=== PATIENT | female | born 1965 ===

== ENCOUNTER 2025-01-23 16:54 | Emergency (ER) | payer OTHER, SELFPAY ==
[2025-01-23 16:56] VITALS: BP 118/79
[2025-01-23 17:14] LABS: Hematocrit 39.3 % (37.0-47.0); Hemoglobin 13.5 g/dL (12.0-16.0); Mean Corp Hgb Conc. 34.4 g/dL (33.0-37.0); Mean Corpuscular Volume 86.8 fL (81.0-99.0); Nucleated Red Blood Cells % 0 %; Platelet Count 248 10^3/uL (130-400); Red Cell Dist. Width 12.4 % (11.5-14.5)
--- NOTE | 2025-01-23 17:18 | ED.GENMED ---
ED Provider Triage
<Zohreh Hoffman PA-C - Last Filed: 01/26/25 06:00>
-
Patient seen by provider in Triage?: Seen in Triage
Attestation: A medical screening examination has been initiated by a qualified medical provider. Based on the assessment performed at this time, it has been determined that an emergent medical condition may exist and the patient has been informed
that further medical evaluation and possible additional diagnostic testing may be needed.
HPI: 59yoF here with lower abd discomfort, bloating, and constipation x 3 days. Now having pain with urination. Hx of diverticulitis and C.diff 7 years ago. Sent in by PCP.
GENERAL: Alert , in no apparent distress
EYE: No visual abnormalities.
NECK: Trachea midline
ENT: No visible abnormalities.
LUNGS: No acute respiratory distress
NEUROLOGICAL: Alert and oriented
SKIN: Skin intact. No visible changes.
MUSCULOSKELETAL: Moving extremities normally
PSYCH: Normal and appropriate interaction.
This is a medical evaluation conducted in person to initiate diagnostic evaluation and provide initial therapeutics. Please see further documentation by the treating clinician.
Labs, UA, and CT abd with IV/PO contrast ordered. Patient has a contrast allergy which was hives but she has been premedicated before without any issue.
History of Present Illness
<Zohreh Hoffman PA-C - Last Filed: 01/26/25 06:00>
General
Chief Complaint: Abdominal Symptoms
Time Seen by Provider: 01/23/25 22:23
<Leonie Egan MD - Last Filed: 01/23/25 23:45>
General
Source: patient
History of Present Illness
History of Present Illness:
59-year-old female presents emergency department with complaints of having difficulty of having a full bowel movement since last Thursday although she says she had a 'good' bowel movement on Thursday. Today, she noted abdominal discomfort
throughout her mid to lower abdomen associated with feeling bloated. She also notes that it 'hurts to pee', in her abdomen, not described as burning with urination or any kind of pelvic/vaginal discomfort. She denies fever, chills, nausea,
vomiting, vaginal bleeding or discharge, chest pain, dyspnea, back pain, or other complaints. The pain is not focal, but she does state that it seems to get worse when she eats.
Past History
<Leonie Egan MD - Last Filed: 01/23/25 23:45>
Past History
ED Past Medical History: Other (C. difficile, diverticulitis, hidradenitis, prediabetes)
ED Past Surgical History: None
Social History
Tobacco: Non-smoker
Alcohol: Occasional
Drug: None
Living: alone
Phy Exam
<Leonie Egan MD - Last Filed: 01/23/25 23:45>
Physical Exam
Physical Exam:
GENERAL: Alert , in no apparent distress
EYE: pupils equal and reactive
NECK: Supple, no significant adenopathy.
ENT: o/p clr, mmm.
CARDIAC: Regular rate and rhythm .
LUNGS: Clear breath sounds bilaterally, no acute respiratory distress, no wheezes/rales/rhonchi
ABDOMEN: Soft, mild lower abdominal tenderness especially at left lower quadrant, no r/g, no cvat
NEUROLOGICAL: Alert and oriented, no focal neuro deficits
SKIN: Warm and dry, skin intact.
MUSCULOSKELETAL: No edema, well perfused.
PSYCH: Normal and appropriate interaction.
Course
<Zohreh Hoffman PA-C - Last Filed: 01/26/25 06:00>
Orders/Labs/Results
Orders:
Orders
01/23/25 17:07
Complete Blood Count/With Diff Urgent
Comprehensive Metabolic Panel Urgent
Lipase Urgent
01/23/25 17:24
CT Abd/pel W Iv And Oral Contr Urgent
Comment:
Reason For Exam: lower abd pain, constipation
Iohexol [Omnipaque] See Protocol PO NOW STA
01/23/25 17:25
Urinalysis Reflex To Culture Urgent
Date Specimen was Collected: 01/23/25
Time Specimen was Collected: 17:23
01/23/25 20:06
Diphenhydramine [Benadryl] 50 mg IV NOW STA
Hydrocortisone Sod Succinate [Solu-Cortef] 200 mg IV NOW STA
01/23/25 23:40
Amoxicillin 875 mg/Clav 125 mg [Augmentin 875 mg/125 mg] 1 tablet PO NOW STA
Vancomycin HCl [Firvanq] 125 mg PO NOW STA
01/23/25 23:59
Vancomycin HCl [Firvanq] 125 mg PO NOW STA
Abnormal Lab Results
01/23/25
17:07
MPV 10.5 H fL
(7.4-10.4)
Absolute Neuts (auto) 8.4 H 10^3/uL
(1.4-6.5)
Neutrophils % 80.3 H %
(42.2-75.2)
Lymphocytes % 12.8 L %
(20.5-51.1)
BUN 19 H mg/dl
(7-17)
Glucose 121 H mg/dl
(70-99)
Calcium 10.3 H mg/dl
(8.4-10.2)
ALT 53 H U/L
(0-35)
Alkaline Phosphatase 134 H U/L
(38-126)
01/23/25 17:07
01/23/25 17:07
Vital Signs
Initial and Last Documented VS:
Initial Vital Signs
Temp Pulse Resp BP Pulse Ox
98.3 F 92 16 118/79 96
01/23/25 16:56 01/23/25 16:56 01/23/25 16:56 01/23/25 16:56 01/23/25 16:56
Last Documented Vital Signs
Temp Pulse Resp BP Pulse Ox
98.3 F 90 14 118/80 96
01/23/25 16:56 01/24/25 00:16 01/24/25 00:16 01/24/25 00:16 01/24/25 00:16
<Leonie Egan MD - Last Filed: 01/23/25 23:45>
Orders/Labs/Results
Orders:
Orders
01/23/25 17:07
Complete Blood Count/With Diff Urgent
Comprehensive Metabolic Panel Urgent
Lipase Urgent
01/23/25 17:24
CT Abd/pel W Iv And Oral Contr Urgent
Comment:
Reason For Exam: lower abd pain, constipation
Iohexol [Omnipaque] See Protocol PO NOW STA
01/23/25 17:25
Urinalysis Reflex To Culture Urgent
Date Specimen was Collected: 01/23/25
Time Specimen was Collected: 17:23
01/23/25 20:06
Diphenhydramine [Benadryl] 50 mg IV NOW STA
Hydrocortisone Sod Succinate [Solu-Cortef] 200 mg IV NOW STA
01/23/25 23:40
Amoxicillin 875 mg/Clav 125 mg [Augmentin 875 mg/125 mg] 1 tablet PO NOW STA
Vancomycin HCl [Firvanq] 125 mg PO NOW STA
01/23/25 23:59
Vancomycin HCl [Firvanq] 125 mg PO NOW STA
Abnormal Lab Results
01/23/25
17:07
MPV 10.5 H fL
(7.4-10.4)
Absolute Neuts (auto) 8.4 H 10^3/uL
(1.4-6.5)
Neutrophils % 80.3 H %
(42.2-75.2)
Lymphocytes % 12.8 L %
(20.5-51.1)
BUN 19 H mg/dl
(7-17)
Glucose 121 H mg/dl
(70-99)
Calcium 10.3 H mg/dl
(8.4-10.2)
ALT 53 H U/L
(0-35)
Alkaline Phosphatase 134 H U/L
(38-126)
01/23/25 17:07
01/23/25 17:07
Vital Signs
Initial and Last Documented VS:
Initial Vital Signs
Temp Pulse Resp BP Pulse Ox
98.3 F 92 16 118/79 96
01/23/25 16:56 01/23/25 16:56 01/23/25 16:56 01/23/25 16:56 01/23/25 16:56
Last Documented Vital Signs
Temp Pulse Resp BP Pulse Ox
98.3 F 90 14 118/80 96
01/23/25 16:56 01/24/25 00:16 01/24/25 00:16 01/24/25 00:16 01/24/25 00:16
<Zohreh Hoffman PA-C - Last Filed: 01/26/25 06:00>
*Pulse Oximetry
SaO2: 96
Oxygen Mode of Delivery: Room air
<Leonie Egan MD - Last Filed: 01/23/25 23:45>
Update Note
Update Note:
Patient presents to the Emergency Department with __abdominal pain
Number and Complexity of Problems Addressed at the Encounter
� Chronic conditions affecting care:
� Acute Exacerbation and/or Progression of Chronic Illness:
� Differential Diagnosis includes: But not limited to constipation, IBS, diverticulitis, appendicitis, kidney stone, etc. etc.
Amount and/or Complexity of Data to be Reviewed and Analyzed
� I performed an independent evaluation of and my interpretation is:
EKG:
CT: Read by radiology Acute sigmoid diverticulitis. Suspected second area of more mild diverticulitis located in the distal descending colon. No CT evidence for perforation or pericolonic abscess.
Xrays:
Laboratory Studies: Generally unremarkable, minimal LFT abnormalities, UA unremarkable
Other:
� Review of other/old records reveals:
� Clinical information was obtained by an independent historian:
� Prescriptions/Medications Considered but not given:
� Further testing considered but not performed:
Risk of Complications and/or Morbidity or Mortality of Patient Management
� Social determinants of health affecting care:
� Discussion with other providers (PCP, Hospitalists, Consultants, etc):
� Escalation of care including admission/observation vs risk of discharge considered: CT noted, exam/history consistent with diagnosis. Patient is a candidate for discharge home with treatment at home given pain is manageable,
no active vomiting, no abscess per fistula or other abnormalities noted. However, patient did have C. difficile when taking antibiotics in the past. She referenced a note from her GI doctors regarding instructions if she was to develop C.
difficile again that recommends administering vancomycin with her antibiotics. In looking at up-to-date guidelines, patient will be prescribed vancomycin 125 mg daily for total of 7 days after first diverticulitis antibiotics are completed. Long
discussion with patient regarding grave importance of discussing this plan with her GI doctors tomorrow.. Will discussed with patient importance of close follow-up and reasons return to the ER. Labs/ct will be printed out for her.
ED Attending Note
<Zohreh Hoffman PA-C - Last Filed: 01/26/25 06:00>
-
Portions of this chart may have been created with voice recognition software.� Occasional wrong word or��sound alike� substitutions may have occurred due to the inherent limitations of voice recognition software.
Discharge Plan
Departure
Patient Disposition: Home (Routine Discharge)
Date of Disposition: 01/23/25
Time of Disposition: 23:42
Patient with high blood pressure during this ER visit?: No
Condition: Good
Discharge Problem:
Diverticulitis
Instructions: Diverticulitis
Prescriptions:
New
amoxicillin-pot clavulanate 875-125 mg tablet
1 tab PO BID Qty: 14 0RF
vancomycin 125 mg capsule
125 mg PO DAILY Qty: 14 0RF
Referrals:
Margarita Hanson MD [Family Provider, Internal Medicine]
Activity Restrictions/Additional Instructions:
PLEASE SEE ATTACHED LABS AND CAT SCAN REPORT. IT IS VERY VERY IMPORTANT THAT YOU CONTACT YOUR GI DOCTOR TOMORROW FOR CLOSE FOLLOW-UP, AND FURTHER GUIDANCE REGARDING YOUR DIAGNOSIS AND ANTIBIOTICS. IF YOU DEVELOP FEVER, VOMITING, DIARRHEA,
INCREASING NEW OR PERSISTENT PAIN, GET WORSE, DO NOT GET BETTER, OR OTHER WORRISOME SIGNS, PLEASE RETURN TO THE ER IMMEDIATELY!
Interventions
Interventions:
*Risk Screen - Suicide Last Done: 01/23/25 21:32
*General Assessment Last Done: 01/23/25 21:32
*Neglect/Abuse Screening Last Done: 01/23/25 21:32
*ED- Fall Risk Assessment Last Done: 01/23/25 21:32
*ED COVID-19 Vaccine History Last Done: 01/23/25 21:32
*Nursing Disposition Last Done: 01/24/25 00:16
DQ-Hqraaa-Jroxtcirda Assessment Last Done: 01/23/25 21:32
Discharge Date and Time
Discharge Date/Time: 01/24/25 00:18
Print Language: POLISH
[2025-01-23] MEDS: OMNIPAQUE 50 ML PO (17:34)
[2025-01-23 17:37] LABS: ALT (SGPT) 53 U/L (0-35); AST (SGOT) 35 U/L (14-36); Albumin 4.9 g/dl (3.5-5.0); Alkaline Phosphatase 134 U/L (38-126); Blood Urea Nitrogen 19 mg/dl (7-17); Calcium 10.3 mg/dl (8.4-10.2); Carbon Dioxide 23 mmol/L (22-30); Chloride 106 mmol/L (98-107); Glucose 121 mg/dl (70-99); Lipase 269 U/L (23-300); Potassium 4.2 mmol/L (3.5-5.1); Sodium 136 mmol/L (135-145); Total Protein 8.1 g/dl (6.3-8.2); eGFR > 60.00
[2025-01-23 17:39] LABS: Urine Character Clear (Clear)
[2025-01-23] MEDS: SOLU-CORTEF 200 MG IV (21:13)
[2025-01-23] MEDS: BENADRYL 50 MG IV (21:13)
[2025-01-23 21:44] VITALS: BP 105/76
[2025-01-23 21:47] VITALS: BMI 25.7
[2025-01-24] MEDS: AUGMENTIN 875 MG/125 MG 1 TABLET PO
[2025-01-24] MEDS: FIRVANQ 125 MG PO (00:09)
[2025-01-24 00:16] VITALS: BP 118/80
== END 2025-01-24 00:18 | disposition home or self-care (01) ==
LOC: EMR 16:54
PROVIDERS: Emergency Medicine; Physician Assistant; EMERGENCY PHYSICIAN Emergency Medicine; FAMILY PHYSICIAN Hospitalist
DX: K57.32 Diverticulitis of large intestine without perforation or abscess without bleeding (principal)
CPT/HCPCS: 96374; 96375; 99284; 74177; 80053; 81003; 83690; 85025; Q9967